=== PATIENT | male | born 1950 | race Caucasian/White ===

== ENCOUNTER 2016-12-06 11:16 | Emergency (ER) | payer OTHER ==
[~2016-12-06] VITALS: Ht 182.9 cm; Wt 107.0 kg
[~2016-12-06 11:16] MED LIST: TAB-TAB PO
[2016-12-06 11:17] VITALS: BP 169/88; PULSE 66; RESP 16; TEMP 98.4; O2SAT 96
[2016-12-06] MEDS ORDERED: LIDOCAINE 1%/EPINEPHrine 1:100,000 SOLN 20 ML VIAL INFIL ONE (11:45)
[2016-12-06] MEDS ORDERED: BACT800T5 PO (11:46)
[2016-12-06] MEDS ORDERED: CEPH-460 PO (11:46)
--- NOTE | 2016-12-06 11:47 | PD ---
HPI Chief Complaint: Skin Problem Time Seen by Provider: 11:42 Travel History International Travel<30 days: No Contact w/Intl Traveler<30days: No Traveled to known affect area: No History of Present Illness HPI 65-year-old male presents to the emergency department for evaluation of lump and erythema to his right back. Patient states he has had a swelling for several years. However, over the past 3 days, has become erythematous and painful. He states he has had to have it incised and drained in the past. He states he has an appointment to follow up to have the cyst removed, but has not yet been able to make the appointment due to [facility]. He denies any fevers or chills. Does have history of valve replacement. He states he is not currently on any medications. He reports allergy to penicillin, but no known allergy to cephalosporins. Patient denies any chest pain shortness breath, abdominal pain, nausea, vomiting diarrhea. He has no other complaints at this time. PFSH Past Medical History Blood Disorders: No Cancer: No Cardiovascular Problems: Yes (VALVE REPLACEMENT) High Cholesterol: Yes Endocrine: No Gastrointestinal Disorders: No Genitourinary: No Immune Disorder: No Implanted Vascular Access Dvce: No Musculoskeletal: No Neurologic: No Psychiatric: No Reproductive: No Respiratory: No Past Surgical History Abdominal Surgery: Yes (INTESTINAL SX) Genitourinary Surgery: Yes (HYDROCELE) Other Surgery: Yes Social History Alcohol Use: Yes (OCCAS. BEER) Tobacco Use: Yes (1 PACK EVERY 2 WEEKS) Substance Use: No Allergies-Medications (Allergen,Severity, Reaction): Coded Allergies: Penicillin (Verified Allergy, Intermediate, HIVES, 12/06/16) Reported Meds & Prescriptions Reported Meds & Active Scripts Active No Active Prescriptions or Reported Medications Review of Systems Except as stated in HPI: all other systems reviewed are Neg Physical Exam Narrative GENERAL: Well-nourished, well-developed male patient, ambulatory. Afebrile. SKIN: Focused skin assessment warm/dry. Patient has 2 cm x 2 cm fluctuant cyst to the right back with erythema and tenderness noted. HEAD: Normocephalic. Atraumatic. EYES: No scleral icterus. No injection or drainage. NECK: Supple, trachea midline. No JVD or lymphadenopathy. CARDIOVASCULAR: Regular rate and rhythm without murmurs, gallops, or rubs. RESPIRATORY: Breath sounds equal bilaterally. No accessory muscle use. Lungs sounds are clear to auscultation. GASTROINTESTINAL: Abdomen soft, non-tender, nondistended. MUSCULOSKELETAL: No cyanosis, or edema. Data Data Last Documented VS Vital Signs Date Time Temp Pulse Resp B/P Pulse Ox O2 Delivery O2 Flow Rate FiO2 12/06/16 11:17 98.4 66 16 169/88 96 Orders Wound Culture And Gram Stain (12/06/16 11:41) Lidocai-Epi 1%-1:100,000 Inj (Xylocaine- (12/06/16 11:45) MDM Medical Decision Making Medical Screen Exam Complete: Yes Emergency Medical Condition: Yes Medical Record Reviewed: Yes Differential Diagnosis Infected sebaceous cyst versus abscess versus cellulitis Narrative Course 65-year-old male presents to the emergency department for evaluation of a lump that is becoming erythematous and painful over the past 3 days. Physical exam is consistent with an infected sebaceous cyst. He verbalizes agreement to incision and drainage. Patient will be discharged with a prescription for Bactrim and Keflex. He is instructed on proper wound care. He verbalizes agreement and understanding. The patient was discharged in stable condition with instructions, including return instructions and follow up instructions. Procedures Procedure Narrative INCISION AND DRAINAGE OF ABSCESS: The area was prepped and was sterilely draped. A subcutaneous wheal of 1% Xylocaine with epinephrine with a total number 3 mL was used to anesthetize the area. The area was properly anesthetized. A number 11 scalpel was used to make a 1 -cm incision across the area of the abscess. Cultures were obtained. The abscess was drained an irrigated with normal saline. Quarter inch iodoform packing was placed in the wound. Sterile dressing applied. Patient advised to have packing removed in two days. Diagnosis Primary Impression: Infected sebaceous cyst of skin Referrals: Primary Care Physician call for appointment Patient Instructions: Abscess (ED), Abscess Incision and Drainage (ED), General Instructions Additional Instructions: Clean twice daily with soap and water and apply [id number] antibiotic ointment. Packing removal in 2 days. Keep clean and dry. Take antibiotics as directed until gone. Follow-up with your primary care physician. Return to the emergency department for any acute worsening of symptoms. Med/Other Pt SpecificInfo: Prescription(s) given Scripts Cephalexin (Keflex)500 Mg [id number] Mg PO Q6H 10 Days Ref 0 Prov:Floresita Basilio 12/06/16 Sulfamethoxazole-Trimethoprim (Bactrim DS)800-160 Mg Tab1 Tab PO BID #20 TAB Ref 0 Prov:Floresita Basilio 12/06/16 Disposition: 01 DISCHARGE HOME Condition: Stable Floresita Basilio Dec 06, 2016 11:47
== END 2016-12-06 12:15 | disposition home or self-care (01) ==
LOC: PHED 11:16
DX: L72.3 Sebaceous cyst (principal)
CPT/HCPCS: 10061; 86403; 87070

== ENCOUNTER 2016-12-08 11:09 | Emergency (ER) | payer OTHER ==
[~2016-12-08] VITALS: Ht 185.4 cm; Wt 104.5 kg
[~2016-12-08 11:09] MED LIST changes: +BACT800T5 PO; +CEPH-460 PO; -TAB-TAB PO
[2016-12-08 11:20] VITALS: BP 140/92; PULSE 86; RESP 16; TEMP 98.1; O2SAT 95
--- NOTE | 2016-12-08 11:27 | PD ---
HPI Chief Complaint: Wound/Suture/Staple Re-Check Time Seen by Provider: 11:23 Travel History International Travel<30 days: No Contact w/Intl Traveler<30days: No Traveled to known affect area: No History of Present Illness HPI 65-year-old male presents to the emergency room for packing removal. Patient had packing placed in an infected sebaceous cyst 2 days ago. States he has had some drainage since then. Reports decreased pain and redness. Denies fever, chills, nausea, vomiting. He has been changing dressings and applying triple antibiotic ointment daily. He has been taking antibiotics as prescribed. PFSH Past Medical History Blood Disorders: No Cancer: No Cardiovascular Problems: Yes (VALVE REPLACEMENT) High Cholesterol: Yes Endocrine: No Gastrointestinal Disorders: No Genitourinary: No Immune Disorder: No Implanted Vascular Access Dvce: No Musculoskeletal: No Neurologic: No Psychiatric: No Reproductive: No Respiratory: No Past Surgical History Abdominal Surgery: Yes (INTESTINAL SX) Genitourinary Surgery: Yes (HYDROCELE) Other Surgery: Yes Social History Alcohol Use: Yes (OCCAS. BEER) Tobacco Use: Yes (1 PACK EVERY 2 WEEKS) Substance Use: No Allergies-Medications (Allergen,Severity, Reaction): Coded Allergies: Penicillin (Verified Allergy, Severe, Hives, 12/08/16) Reported Meds & Prescriptions Reported Meds & Active Scripts Active Keflex (Cephalexin) 500 Mg Capsule 500 Mg PO Q6H 10 Days Bactrim DS (Sulfamethoxazole-Trimethoprim) 800-160 Mg Tab 1 Tab PO BID Review of Systems Except as stated in HPI: all other systems reviewed are Neg Physical Exam Narrative GENERAL: Well-nourished, well-developed male in no acute distress. Afebrile. Ambulatory. SKIN: Focused skin assessment warm/dry. There is an indurated area in the right back which measures about 2 cm in diameter. No fluctuance, inflammation, or lymphangitis. Packing in place. HEAD: Normocephalic. EYES: No scleral icterus. No injection or drainage. NECK: Supple, trachea midline. No JVD or lymphadenopathy. CARDIOVASCULAR: Regular rate and rhythm without murmurs, gallops, or rubs. RESPIRATORY: Breath sounds equal bilaterally. No accessory muscle use. PSYCHIATRIC: No delusional thought processes. No hallucinations. Data Data Last Documented VS Vital Signs Date Time Temp Pulse Resp B/P Pulse Ox O2 Delivery O2 Flow Rate FiO2 12/08/16 11:20 98.1 86 16 140/92 95 MDM Medical Decision Making Medical Screen Exam Complete: Yes Emergency Medical Condition: Yes Medical Record Reviewed: Yes Differential Diagnosis Infected sebaceous cyst, packing removal, cellulitis Narrative Course 65-year-old male presents to the emergency room for packing removal. Patient had packing placed 2 days ago in an infected sebaceous cyst. Physical exam is reassuring. Infection is resolving. Vital signs stable. Packing was removed without difficulty. Patient told to continue wound care and follow-up with a primary care physician or return for worsening symptoms. He understands and agrees to plan. Diagnosis Primary Impression: Abscess packing removal Referrals: Primary Care Physician Patient Instructions: Abscess Follow-up (ED), General Instructions Additional Instructions: Rest and drink plenty of fluids. Continue Bactrim and Keflex as directed, until gone. Return to the emergency room in 2 days to have packing removed. If it falls out before, this is okay. Follow up with a primary care physician. Return to emergency room for worsening symptoms, as discussed. Disposition: 01 DISCHARGE HOME Condition: Stable Milena Khan Dec 08, 2016 11:27
== END 2016-12-08 11:35 | disposition home or self-care (01) ==
LOC: PHEFT 11:09
DX: L72.3 Sebaceous cyst (principal); Z48.01 Encounter for change or removal of surgical wound dressing
CPT/HCPCS: 99281